=== PATIENT | male | born 1965 | race Caucasian/White ===

== ENCOUNTER 2021-01-19 11:06 | Emergency (ER) | payer MEDICAID ==
[~2021-01-19] VITALS: Ht 172.7 cm; Wt 100.0 kg
[2021-01-19 11:08] VITALS: BP 148/86
[2021-01-19] MEDS ORDERED: BACITRACIN ZINC OINT UDPKT TOP ONE (11:45)
[2021-01-19] MEDS ORDERED: LIDOCAINE HCL/EPINEPHRINE 1%-EPI 1:100,000 20 ML VIAL INFIL ONE (11:45)
[2021-01-19] MEDS ORDERED: HYDROCODONE/ACETAMINOPHEN 5/325MG TABLET PO STA (11:45)
[2021-01-19] MEDS ORDERED: IBUP-2029 PO (14:22)
== END 2021-01-19 14:47 | disposition home or self-care (01) ==
LOC: ER 11:06 → EDBD 11:06 → ER 14:47
DX: S51.812A Laceration without foreign body of left forearm, initial encounter (principal); W27.0XXA Contact with workbench tool, initial encounter; Y93.89 Activity, other specified; Y92.9 Unspecified place or not applicable
CPT/HCPCS: 12002; 73090; 99283; J3490; Z7610